=== PATIENT | male | born 1950 | race Caucasian/White ===

== ENCOUNTER 2025-06-19 21:39 | Inpatient (IN) | payer OTHER, SELFPAY ==
[2025-06-19 19:03] VITALS: BP 109/69
[2025-06-19 19:20] VITALS: BP 114/79
[2025-06-19 19:27] VITALS: BMI 25.9
--- NOTE | 2025-06-19 19:49 | ED.GENMED ---
History of Present Illness
General
Chief Complaint: Heart Rate Problem
Source: patient
Exam Limitations: none
Time Seen by Provider: 06/19/25 19:20
Nursing documentation reviewed up to this point in time: agreed with
History of Present Illness
History of Present Illness:
Note:
CHIEF COMPLAINT(S)
Palpitations since late afternoon.
HISTORY OF PRESENT ILLNESS
The patient is a 75-year-old male presenting with new-onset palpitations since late this afternoon. He reports feeling unwell before his smartwatch indicated an elevated heart rate around 6 PM. The patient denies any previous episodes of this
nature. He has not experienced chest pain or shortness of breath but describes a 'weird' sensation in his chest. The patient has not been on any blood thinners, mentioning he takes metformin, and has no significant medical history reported. After
waking from a nap around 4 PM, his condition started to worsen, particularly during dinner around 4:35 to 5 PM. He also recounts participating in a [employer] screening approximately a year ago, with no abnormal findings reported back then.
PAST SURGICAL HISTORY
Tonsillectomy at age 11.
MEDICATIONS
Metformin (dosage not specified).
PHYSICAL EXAM
General: Alert, no acute distress.
Skin: Warm, dry.
Head: Normocephalic, atraumatic.
Neck: Supple, trachea midline.
Eye, Ears, Nose, Mouth, and Throat: Oral mucosa moist.
Cardiovascular: Normal peripheral perfusion, No edema. Irregularly irregular heart rate.
Respiratory: Respirations are non-labored.
Gastrointestinal: Abdomen nondistended.
Back: Normal range of motion, Normal alignment.
Musculoskeletal: Normal range of motion, normal strength.
Neurological: Alert and oriented to person, place, time, and situation, No focal neurological deficit observed.
Psychiatric: Cooperative, appropriate mood & affect.
PLAN
The plan is to consult cardiology due to the patients presentation of atrial fibrillation with rapid ventricular response. Considering this is the first episode and due to the potential risk of a blood clot, the patient will likely need to be
admitted for further testing and monitoring. Initial cardiology consultation will determine further management steps, possibly involving rhythm control and anticoagulation if indicated.
DIFFERENTIAL DIAGNOSIS
The differential diagnosis includes, in no particular order and is not limited to:
1. Atrial fibrillation with rapid ventricular response
2. Paroxysmal supraventricular tachycardia
3. Myocardial infarction
4. Thyrotoxicosis
5. Electrolyte imbalance
6. Anxiety or panic disorder
7. Structural heart disease
CARE-UPDATE
06/19/25 - 19:[address] Prince; confirmed alignment with current management plan involving heparin anticoagulation and admission for further evaluation, including possible transesophageal echocardiogram (LINDA). The patient and her are in agreement
with the proposed approach.
Disposition:
SUMMARY OF ENCOUNTER
The patient is a 75-year-old male who presented to the emergency department with new onset atrial fibrillation with rapid ventricular response. The patient reported feeling symptoms upon waking from a nap around 4:30 PM and has no prior history of
atrial fibrillation. He is not currently on anticoagulation therapy. Given the presentation, the patient was assessed for potential admission due to the risk associated with atrial fibrillation and the need for further monitoring and evaluation.
DISPOSITION
Admit
ASSESSMENT
The patient is experiencing new onset atrial fibrillation with rapid ventricular response, necessitating evaluation and management for possible anticoagulation and rhythm control.
MANAGEMENT OF THE PATIENTS CARE WAS DISCUSSED WITH
Consulted with Dr. Prince to confirm the management plan, including the initiation of heparin anticoagulation and hospital admission for further evaluation.
PLAN
The patient will be admitted for further testing and monitoring in the setting of new onset atrial fibrillation with rapid ventricular response. Cardiology will be consulted to determine the next steps in management, possibly involving rhythm
control and initiation of anticoagulation therapy if indicated.
MEDICATION RECONCILIATION
The patient is currently taking Metformin. He has not been prescribed or administered any other medications as noted in this encounter.
MEDICAL DECISION MAKING
-Chronic conditions affecting care [None specified in history]
Differential diagnosis includes atrial fibrillation with rapid ventricular response, paroxysmal supraventricular tachycardia, myocardial infarction, thyrotoxicosis, electrolyte imbalance, anxiety or panic disorder, structural heart disease,
pulmonary embolism, hypertensive emergency, and infection causing sepsis-related tachycardia.
-Data:
Category 3
Discussion of management with Dr. Prince regarding anticoagulation and admission for evaluation.
DIAGNOSIS
New onset atrial fibrillation with rapid ventricular response (I48.91)
Phy Exam
Physical Exam
Physical Exam:
.
Cardiovascular Exam
Cardiovascular Exam: irregularly irregular
Scores
[id number] Score for Afib Stroke Risk
Age in Years (65=0, 65-74=1, >/=75=2): > or = 75
Sex (Female=+1): Male
Congestive Heart Failure History (Yes=+1): No
Hypertension History (Yes=+1): No
Stroke/TIA/Thromboembolism History (Yes=+2): No
Vascular Disease History (Yes=+1): No
Diabetes Mellitus (Yes=+1): No
Score: 2
Anticoagulation Recommendations: Recommend anticoagulation (as validated in nonvalvular fib)
Course
Orders/Labs/Results
Orders:
Orders
06/19/25 Breakfast
Cholesterol Lowering
At Your Request: Full Participation
Cholesterol Lowering: Sodium, 2 Gram
06/19/25 18:54
Electrocardiogram (*1) Urgent
Reason for Study: Chest Pain
EKG- Treatment ONCE
06/19/25 19:09
Electrocardiogram (*1) Urgent
Reason for Study: Other
Other Reason for Exam: Respiratory Distress
Cardiac Monitoring- Treatment ONCE
EKG- Treatment ONCE
IV Insert/Care/Rem.- Treatment PRN
CR Chest - 2 Views Urgent
Comment:
Reason For Exam: respiratory distress
O2 Therapy [RESP] Urgent
Titrate/Wean O2 to maintain O2 sat greater than (%): 93
Special Instructions: TO MAINTAIN CONTINUOUS O2 SATS >/= 93%
Pulse Ox/cont/shift [RESP] Urgent
Quantity: 1
Special Instructions: continuous pulse ox
06/19/25 19:40
Heparin 4,000 units IV NOW STA
06/19/25 19:[address] Non Medication Order As Directed
Physician Order: PTT 6 hours after initial start of Heparin infusion
Above order entered?: Yes
06/19/25 19:42
Diltiazem HCl [Cardizem] 20 mg IV NOW STA
06/19/25 19:45
Heparin 09519 Units/250 ml 25,000 units in 250 ml IV PER PROTOCOL
Weight to be used for heparin protocol in kilograms (kg):: 81.8
Protocol:: Cardiac Tx/Acute Coronary
PTT Goal Range to be used:: PTT 73 to 111 seconds
Order type:: Initial
INITIAL Infusion Dose (UNITS/KG/hr) & then follow protocol:: 15 units/kg/hr
Infusion Dose in UNITS/hr & then follow protocol (UNITS/hr):: 1,250
INFUSION RATE in mL/hr & then follow protocol (mL/hr):: 12.5
PTT less than or equal to 64 seconds:: Increase rate by 200 units/hr (+ 2 mL/hr)
PTT 64.1 to 72.9 seconds:: Increase rate by 100 units/hr (+ 1 mL/hr)
PTT 73 to 111 seconds:: Target Range. No change in rate.
PTT 111.1 to 130.9 seconds:: Decrease rate by 100 units/hr (- 1 mL/hr)
PTT 131 to 199.9 seconds:: HOLD for 1 hr. Then decrease rate by 200 units/hr (- 2 mL/hr)
PTT greater than or equal to 200 seconds:: HOLD for 2 hrs & Notify Provider. Then decrease by 200 units/hr (-
2 mL/hr)
Lab follow-up:: Each change, PTT q6h until 2 consecutive are therapeutic. Then PTT
daily.
06/19/25 19:50
Complete Blood Count/With Diff Urgent
Comprehensive Metabolic Panel Urgent
NT-proBNP Urgent
PTT Urgent
Comment: Obtain baseline before beginning heparin infusion if not already collected
Troponin I Urgent
06/19/25 20:57
Admit/Transfer Patient As Directed
Co-Sign Provider:
Level of Care: Inpatient admission
Assign to:: IVU
Physician / Group: [email or web address]
Diagnosis: New onset symptomatic fast A Fib
Reason for Hospitalization: New onset symptomatic fast A Fib
Expected length of stay greater than two midnights?: Yes
ELOS- Estimated Length of Stay in days: 3
I certify the patient meets the requirements for IP care: Yes
PRN Pain Medication Management As Directed
May give lesser potent ordered pain med per pt: Yes
preference::
Protocol:: Medication orders for pain may be administered in a
manner that supports deferring to patient preference
when the pt is:
- Requesting an ordered lesser potent pain medication.
Least to most potent pain medications are defined
as: acetaminophen < NSAID < tramadol < opioids
(morphine, oxycodone, hydromorphone).
- Requesting a lesser dose of the same medication IF
ORDERED.
- Requesting a less intrusive route of administration
if both routes are prescribed by the provider (PO <
IV).
06/19/25 21:00
Code Status As Directed
Resuscitation Status: Full Code
06/19/25 21:58
Acetaminophen [Tylenol] 650 mg PO Q4HPRN PRN
Bisacodyl [Dulcolax] 10 mg RECTAL [id number] PRN
Diltiazem 125 mg/125 ml Nss [Cardizem] 125 mg in 125 ml IV PER PROTOCOL
Initial dose in mg/hr, then titrate:: 5
Titrate to keep:: Heart rate 80-100 bpm
Titrate by mg/hr:: 5 mg/hr
Frequency of titrations (minutes):: 15
Maximum dose in mg/hr:: 15
Docusate W/Senna [Senokot-S] 1 tablet PO BIDPRN PRN
Ondansetron Injectable [Zofran] 4 mg IV Q6HPRN PRN
Polyethylene Glycol Powder [Miralax] 17 grams PO DAILYPRN PRN
06/19/25 21:58
Consult Cardiology [CARDIOLOGY CONSULT] Routine
Consulting Provider: Mauricio Monson
Was physician already notified: Yes
Reason for consult: New onset symptomatic fast A Fib
Activity As Directed
Activity Level: With Assistance
Vital Signs As Directed
Frequency: Per unit guidelines
Cbc Echo Follow up Study Routine
Comment:
06/20/25 02:41
Heparin Protocol- PTT Orders As Directed
PTT per Heparin protocol: per protcol, 6 hrs from start of heparin drip
Above order entered?: Yes
06/20/25 06:00
Echo 2D MMode Color/Doppler IN AM
Reason for Study: new onset A Fib
Basic Metabolic Panel IN AM
Complete Blood Count/No Diff IN AM
Abnormal Lab Results
06/19/25
19:50
RBC 4.26 L 10^6/uL
(4.70-6.10)
Absolute Monos (auto) 0.8 H 10^3/uL
(0.1-0.6)
Neutrophils % 38.1 L %
(42.2-75.2)
Monocytes % 11.8 H %
(1.7-9.3)
06/19/25 19:50
06/19/25 19:50
Vital Signs
Initial and Last Documented VS:
Initial Vital Signs
Temp Pulse Resp BP Pulse Ox
99 F 148 20 109/69 98
06/19/25 19:03 06/19/25 19:03 06/19/25 19:03 06/19/25 19:03 06/19/25 19:03
Last Documented Vital Signs
Temp Pulse Resp BP Pulse Ox
98.1 F 72 16 108/71 98
06/19/25 23:10 06/19/25 23:10 06/19/25 23:10 06/19/25 22:06 06/19/25 23:10
*Pulse Oximetry
SaO2: 96
Oxygen Mode of Delivery: Room air
Patient hypoxic: no
*Critical Care Note
Total Time (30-74mins, 75-104mins- exclusive of procedures): Not Applicable
ED Attending Note
-
Portions of this chart may have been created with voice recognition software.� Occasional wrong word or��sound alike� substitutions may have occurred due to the inherent limitations of voice recognition software.
Discharge Plan
Departure
Patient Disposition: Admit
Date of Disposition: 06/19/25
Time of Disposition: 19:50
Admit to: Telemetry
Presentation/result/management discussed w/ accepting MD/DO: Hospitalist
Discharge Problem:
Atrial fibrillation with RVR
Interventions
Interventions:
*Risk Screen - Suicide Last Done: 06/19/25 19:03
*General Assessment Last Done: 06/19/25 19:03
*Neglect/Abuse Screening Last Done: 06/19/25 19:03
*ED- Fall Risk Assessment Last Done: 06/19/25 19:03
*ED COVID-19 Vaccine History Last Done: 06/19/25 19:03
*Nursing Disposition Last Done: 06/19/25 22:11
ED- Cardiac Assessment Last Done: 06/19/25 19:45
ED- Pulmonary Assessment Last Done: 06/19/25 19:45
Discharge Date and Time
Discharge Date/Time: 06/19/25 22:00
[2025-06-19 20:01] LABS: Hematocrit 39.2 % (39.0-52.0); Hemoglobin 13.2 g/dL (13.0-18.0); Mean Corp Hgb Conc. 33.7 g/dL (33.0-37.0); Mean Corpuscular Volume 92.0 fL (80.0-94.0); Nucleated Red Blood Cells % 0 % (-); Platelet Count 227 10^3/uL (130-400); Red Cell Dist. Width 13.2 % (11.5-14.5)
[2025-06-19 20:11] LABS: APTT 27.1 Sec (23.4-35.0)
[2025-06-19] MEDS: CARDIZEM 20 MG IV (20:20)
[2025-06-19] MEDS: HEPARIN 4000 UNITS IV (20:21)
[2025-06-19 20:25] LABS: ALT (SGPT) 21 U/L (0-50); AST (SGOT) 24 U/L (17-59); Albumin 4.0 g/dl (3.5-5.0); Alkaline Phosphatase 51 U/L (38-126); Blood Urea Nitrogen 18 mg/dl (9-20); Calcium 8.9 mg/dl (8.4-10.2); Carbon Dioxide 28 mmol/L (22-30); Chloride 107 mmol/L (98-107); Estimated Creatinine Clearance 54 ml/min; Glucose 96 mg/dl (70-99); Potassium 4.6 mmol/L (3.5-5.1); Sodium 140 mmol/L (135-145); Total Protein 6.5 g/dl (6.3-8.2); eGFR > 60.00
[2025-06-19 20:36] LABS: Troponin I < 0.012 ng/ml
[2025-06-19 21:00] VITALS: BP 106/67
[2025-06-19 22:06] VITALS: BP 108/71
--- NOTE | 2025-06-19 22:41 | PTCARENOTE ---
Pt admitted from ER into 2241 for new onset A fib w AVR. Pt is AAOx3 SR on the monitor repeat EKG done VSS denies CP Heparin gtt infusing @ 1250 unit/HR. A fib booklet given. Pt was oriented to the room and POC for the night. Call haines within reach.
[2025-06-19 23:11] VITALS: BMI 25.4
[2025-06-20 02:33] VITALS: BP 108/60
[2025-06-20 03:23] LABS: Hematocrit 34.4 % (39.0-52.0); Hemoglobin 11.4 g/dL (13.0-18.0); Mean Corp Hgb Conc. 33.1 g/dL (33.0-37.0); Mean Corpuscular Volume 92.7 fL (80.0-94.0); Platelet Count 201 10^3/uL (130-400); Red Cell Dist. Width 13.4 % (11.5-14.5)
[2025-06-20 03:33] LABS: APTT 112.4 Sec (23.4-35.0)
[2025-06-20 03:45] LABS: Blood Urea Nitrogen 21 mg/dl (9-20); Calcium 8.7 mg/dl (8.4-10.2); Carbon Dioxide 26 mmol/L (22-30); Chloride 111 mmol/L (98-107); Estimated Creatinine Clearance 65 ml/min; Glucose 103 mg/dl (70-99); Potassium 4.5 mmol/L (3.5-5.1); Sodium 138 mmol/L (135-145); eGFR > 60.00
[2025-06-20 06:53] VITALS: BP 123/70
[2025-06-20 07:15] VITALS: BMI 25.3
--- NOTE | 2025-06-20 07:37 | CON.CAR ---
Addendum entered and electronically signed by Mauricio Monson MD 06/20/25 09:52:
I saw and examined the patient.
The COKE BURNER or PA's note was reviewed and I agree with the note.
Comment: General: Well developed, well nourished in NAD.
Neck: Supple, no JVD, HJR, carotids +2 B/L, no bruits bilaterally.
Heart: Non displaced PMI, RRR, no murmurs, No S3, S4, no rubs.
Lungs: Clear to auscultation bilaterally, no wheeze, rhonchi, rubs bilaterally,
normal expiratory phase.
Abdomen: Normal bowel sounds, soft, non-tender, non-distended.
Extremities: No clubbing, cyanosis or edema bilaterally.
Neuro: Grossly nonfocal, awake, alert and oriented x3.
Adam has a history of hypercholesterolemia. He presents with new onset of palpitations and A-fib noted on his Apple Watch. He wears his watch regularly and has not had A-fib in the past. He spontaneously converted to sinus rhythm. Denies
chest pain, short breath, or palpitations.
Will add Toprol and Eliquis. Will check echocardiogram. If echo okay stable cardiology status for discharge. Discussed with primary service.
Original Note:
Consultation
Consultation Request
Date/Time Consultation Requested: 06/19/2025, 2158
Date/Time Consultation Performed: 06/20/2025, 0742
Requesting Provider: Dr Mendoza
Performing Provider: ABBY Arteaga for Dr Monson
Reason for Consultation: afib
Medical History
-
Chief Complaint: palpitations
History of Present Illness:
75-year-old male presents with new onset palpitations since late afternoon 06/19/2025, noted afib on his Apple Watch. Complains of weird sensation in his chest but no chest pain or shortness of breath. Presented to ED and was found to be in A-fib
with rapid ventricular response. [id number] score 2 for age. Started on heparin and Cardizem drip. No prior history of afib. Has worn Apple Watch for 5-6 yrs with no detections. On Atorvastatin for hyperlipidemia. No h/o HTN, TN, CAD, HF,
arrhythmias.
ED workup: Troponin less than 0.012, proBNP 350 BUN/creatinine 18/1.2, NA 140, K4.6, hemoglobin 13.2
Chest x-ray: no acute process
EKG: afib 155 bpm
Pt admitted to IVU, spontaneously converted to NSR.
Feels well, no CP, SOB, palps, LH, syncope.
Admits to snoring. Never tested for sleep apnea.
Past Medical History
Past Medical History: Hypercholesterolemia
Past Surgical History: Other
Social History
Tobacco: Non-Smoker
Alcohol: None (wuite)
Allergies / Home Medications
Allergy/AdvReac Type Severity Reaction Status Date / Time
No Known Allergies Allergy Unverified 06/19/25 19:03
�Medication �Instructions �Recorded �Confirmed �Type
atorvastatin 20 mg tablet 20 mg PO DAILY 06/19/25 06/19/25 History
Review of Systems
-
History Source: Patient
Constitutional: No Symptoms
Physical Exam
Vital Signs
Temp Pulse Resp BP Pulse Ox
97.7 F 58 17 108/60 97
06/20/25 07:15 06/20/25 07:15 06/20/25 07:15 06/20/25 02:33 06/20/25 07:15
GEN: No distress, awake, Ox3
HEENT: supple, anicteric, mmm
LUNGS: CTA, no wheezes/rales
CV: Reg, S1/S2, no murmur
ABD: soft, BS+, NT/ND
EXT: No edema
NEURO: Gross non-focal
SKIN: No rash
Lab Results
06/20/25 02:41
06/20/25 02:41
Troponin I < 0.012 ng/ml 06/19/25 19:50
Oqr-O-Vwtsxwerrwf Pept 350 pg/ml 06/19/25 19:50
Impression / Plan
-
PCP: Sarah Solano
Prim rubber mold maker: none
Imp:
New onset atrial fibrillation
hyperlipidemia
Previous CV testing:
Ex stress test 2012: negative for ischemia
Plan
-new onset paroxysmal atrial fibrillation
-spontaneously converted to NSR
-[id number] 2 -age- anticoag indicated
-start Eliquis 5 mg bid-I ordered, can stop Heparin
-start Toprol 25 mg daily-I ordered
-getting echo today
-check TSH-added on
-outpt cardiac f/u with [facility]
-consider outpt sleep study
-cont Atorvastatin for hyperlipidemia
Data Reviewed
-
EKG: Tracing Personally Visualized and interpreted
Labs: Labs Reviewed by me
--- NOTE | 2025-06-20 08:13 | PTCARENOTE ---
Assumed care of patient. Walking rounds completed with previous RN. Pt assessed while he was lying in the bed. Pt alert and oriented x4. Pt denies pain, shortness of breath, and nausea. PAYAN with equal strength, pt independent in the room. SB with
1st degree AVB on tele with rates in the 60s. BP 123/70. Bilateral radial and DP pulses palpable. No edema noted. POX 97% on RA. Lungs clear throughout. No cough noted. Abdomen soft, round, nontender. +BS. Pt voiding in the bathroom, reports no
issues. Left forearm 20g PIV intact infusing heparin gtt @1150units/hour. See MAR for medication administration. See worklist for complete nursing assessment. Plan of care reviewed and patient in agreement.
--- NOTE | 2025-06-20 09:04 | W.PN.HOSP.TC ---
Today's Communication/Plan
-
Follow-up echo, okay to discharge if unremarkable per cards
Stopped heparin, started Eliquis 5 mg twice daily
Started Toprol 25 mg daily
Follow-up with [facility] cardiology outpatient
Outpatient sleep study recommended
Assessment / Plan
Assessment / Plan
Adam is a 75-year-old male with hyperlipidemia, GERD, diverticulosis, T2D on metformin, and history of hepatitis B who presented to the ED for new onset palpitations since afternoon 06/19/2025, noted A-fib on his Apple Watch, now with a formal new
diagnosis of A-fib. In the ED, he was found to be in A-fib with RVR (155 bpm) and started on heparin and Cardizem drip. He was admitted to the IVU and spontaneously converted to normal sinus rhythm. Cardiology was consulted for further workup and
management. Of note, he he has no history of hypertension, MA, CAD, HF, arrhythmias, and this is a new alert for him (has had Apple watch for 5 to 6 years).
#New onset atrial fibrillation
- Cards consulted, appreciate recs
--Start Eliquis 5 mg twice daily: Stop heparin
--Start Toprol 25 mg daily
--Follow-up echo
-- TSH 3.16, WNL
--Outpatient cardiology follow-up with [facility]
--Consider outpatient sleep study
- IV Zofran 4 mg every 6 hours as needed
- Tylenol 650 mg every 4 hours as needed
#Hyperlipidemia
- Continue atorvastatin 20 mg p.o. daily
#Type 2 diabetes mellitus
- Hold home metformin in the hospital
Diet: Cholesterol-lowering, standard bowel regimen
DVT prophylaxis: Eliquis scratch that
CODE STATUS: Full code
Anticipated Discharge: Today (Pending echo results)
Subjective/Interval History
-
Date of Service: June 20, 2025
-This morning, he is sitting comfortably in bed with at bedside and best friend in the room. He denies chest pain, palpitations, N/V, or any other symptoms. Overall, he is in agreement with the plan per cardiology. I discussed with him
that if his echo today comes back unremarkable, he would be good to go home with outpatient cardiology follow-up.
Objective Data
-
Labs:
Laboratory Results
06/20/25 06/20/25
02:41 09:45
WBC 6.0
Hgb 11.4 L
Hct 34.4 L
Plt Count 201
APTT 112.4 H Pending
Sodium 138
Potassium 4.5
Chloride 111 H
Carbon Dioxide 26
BUN 21 H
Creatinine 1.0
Glucose 103 H
Calcium 8.7
Vital Signs:
Vital Signs
Temp Pulse Resp BP Pulse Ox
97.7 F 55 17 123/70 97
06/20/25 07:15 06/20/25 08:00 06/20/25 07:15 06/20/25 06:53 06/20/25 08:26
I&O
06/19/25 06/20/25 06/21/25
06:59 06:59 06:59
Output Total 350 / 350 300 / 300
Balance -350 / -350 -300 / -300
Review of Systems
-
History Source: Patient
All other systems: Reviewed and negative
Physical Exam
-
General: Well Developed, Well Nourished and No Apparent Distress
HEENT: Normocephalic, Atraumatic and Moist Mucous Membranes
Respiratory: Clear to Auscultation and Non Labored Respirations
Cardiac: S1/S2 and Irregular Rhythm (New A-fib, rate controlled)
GI: Soft, Nontender and Nondistended
Musculoskeletal: No Clubbing, No Cyanosis and No Edema
Skin: Warm and Dry
Psych: Calm and Intact Judgement/Insight
[2025-06-20 09:29] VITALS: BP 124/67
[2025-06-20] MEDS: TOPROL XL 25 MG PO (09:29)
[2025-06-20] MEDS: ELIQUIS 5 MG PO (09:29)
--- NOTE | 2025-06-20 09:54 | W.PN.UPDATE ---
Addendum entered and electronically signed by Poncho Valle MD 06/20/25 13:48:
Total time spent on d/c = 31 min. This included today's physical exam, progress note, review of laboratory and diagnostic data, preparation of discharge documents and prescriptions, and discussions about the pt's hospital course and discharge plan
with the patient and other medical laboratory technical officer involved in the patient's care.
Original Note:
Update Note
Progress Note Update
I saw and evaluated the patient. I reviewed the resident�s note and agree with findings and plan as documented in the resident�s note.
Denies CP/SOB.
Gen: NAD, AAOx3.
Eyes: EOMI, PERRLA, no scleral icterus.
Neck: supple.
CV: RRR, +S1/S2, no m/r/g.
Resp: CTAB, no rales, wheezes, or rhonchi.
Abd: +BS, soft, NT, ND
Skin: No rashes.
Neuro: CN 2-12 intact, non-focal.
Psych: Normal mood and affect.
Afib with RVR:
-was given 20mg IV cardizem, now converted to SR and off cardizem gtt
-check echo
-cont Eliquis/BB
-was on Heparin gtt, now converted to Eliquis
-cards following, likely can be discharged after echo
HLD:
-cont statin
FULL/Eliquis
[2025-06-20 10:21] LABS: TSH 3.16 uIU/ml (0.47-4.68)
[2025-06-20 11:41] VITALS: BP 133/74
--- NOTE | 2025-06-20 14:22 | PTCARENOTE ---
Discharge order recieved. Pt stable prior to discharge. All instructions reviewed and all questions answered. Pt refused eliquis pricing and stated that 'I'll pay whatever'. PIV d/c. Tele d/c. Taken via wheelchair to his car.
--- NOTE | 2025-06-20 15:58 | CM ---
spoke to pt in room, he is prev indep, lives with his husb in a 2 story home wiot 3 steps to [place]. he denies any dc planning needs. plan is for dc to [facility] medically stable.
--- NOTE | 2025-06-20 17:09 | W.DCSUMMARY ---
Discharge Summary
Discharge Data
Date of Admission: 06/19/25
Date of Discharge: 06/20/25
-
Pending Results: No
Hospital Course
Discharging Physician : Pearl Montelongo MD/[email or web address]
Disposition : Home
Principal Discharge diagnosis : Atrial fibrillation s/p RVR
Hospital Course : Adam is a 75-year-old male with hyperlipidemia, GERD, diverticulosis, T2D on metformin, and history of hepatitis B who presented to the ED for new onset palpitations since afternoon 06/19/2025, noted A-fib on his Apple Watch,
now with a formal new diagnosis of A-fib. In the ED, he was found to be in A-fib with RVR (155 bpm) and started on heparin drip and given a one-time dose of Cardizem. Of note, he he has no history of hypertension, UT, CAD, HF, arrhythmias, and this
is a new alert for him (has had Apple watch for 5 to 6 years). He was admitted to the IVU and spontaneously converted to normal sinus rhythm. Cardiology was consulted for further workup and management. He was started on 2 new medications: Eliquis
5 mg twice daily and Toprol 25 mg daily. Echo showed 71% ejection fraction, and mild aortic, mitral, tricuspid regurgitation. He was deemed medically stable for discharge with recommendation for an outpatient sleep study and outpatient follow-up
scheduled with cardiology in July and PCP in less than a week. See below for full hospital course by problem:
#New onset atrial fibrillation
- Cards consulted, appreciate recs
-- Eliquis 5 mg twice daily: Stop heparin
-- Toprol 25 mg daily
--Follow-up echo as below
-- TSH 3.16, WNL
--Outpatient cardiology follow-up with [facility]
--Consider outpatient sleep study
- IV Zofran 4 mg every 6 hours as needed
- Tylenol 650 mg every 4 hours as needed
#Hyperlipidemia
- Continue atorvastatin 20 mg p.o. daily
#Type 2 diabetes mellitus
- Hold home metformin in the hospital
Important imaging findings :
Echo 06/20/2025:
1. Left ventricular ejection fraction is normal with an ejection fraction of 71 % by Clay's biplane method of discs.
2. Normal left ventricular size, wall thickness and systolic function. No regional wall motion abnormalities are seen.
3. Mild to moderate aortic regurgitation.
4. Mild mitral valve regurgitation.
5. Mild tricuspid regurgitation.
6. Tricuspid valve opens normally. mild tricuspid regurgitation. Estimated pulmonary artery pressure of 31 mmHg assuming a right atrial pressure of 3 mmHg.
7. No prior echo for comparison.
Discharge Plan
-
Patient Disposition: Home (Routine Discharge)
Discharge Diagnosis/Procedures: New atrial fibrillation s/p RVR, now NSR
Condition: Good
Diet: Low Cholesterol
Activity: No restrictions
Driving Restrictions: As prior to admission
Bathing Restrictions: None
Others Tests: Consider outpatient sleep study
Referrals:
Sudha Keyes PA-C [Specified Professional Personl, Cardiology] - 07/18/25 8:20 am
Referral Note: You have an appointment with Dr. Monson's physician physiotherapy assistant Sudha at the [facility]. Please call if questions.
Sarah Solano MD [Family Provider, Family Practice] - in less than 1 week
Referral Note: Follow-up about this hospitalization with your PCP in a week. Consider outpatient sleep study to evaluate for obstructive sleep apnea.
Additional Discharge Medication Instructions: Given your new diagnosis of atrial fibrillation, please take Eliquis 5 mg tablet twice daily and metoprolol succinate 25 mg once daily.
Follow-up outpatient with your PCP for this hospitalization in a week and pipe layer helper appointment with HANNAH Keyes at 8:20 AM on 07/18/2025 regarding atrial fibrillation management.
Prescriptions:
New
Eliquis 5 mg Tablet
5 mg PO BID 60 Days Qty: 120 0RF
metoprolol succinate 25 mg Tablet Extended Release 24 Hr
25 mg PO DAILY 30 Days Qty: 30 0RF
Continued
atorvastatin 20 mg Tablet
20 mg PO DAILY
Discharge Orders:
Discharge Patient (As Directed); Ordered 06/20/25
Ordered By: Poncho Valle
Care Plan Goals
Care Plan Goals:
Problem: Readiness for enhanced knowledge related to diagnosis and treatment plan
Goal: Understand your diagnosis and treatment plan needs, including medications if applicable.
Instructions: Know your diagnosis, underlying causes and treatment plan options, including medications if applicable. Consult with your health care team to learn about your diagnosis and treatment plan, including medications if applicable.
Discharge Date and Time
Discharge Date/Time: 06/20/25 14:24
Print Language: [id number]
== END 2025-06-20 14:24 | disposition home or self-care (01) | DRG 310 ==
LOC: IVU 21:39
PROVIDERS: ADMITTING PHYSICIAN Internal Medicine; ATTENDING PHYSICIAN Internal Medicine; CONSULT PHYSICIAN Internal Medicine Cardiovascular Disease; EMERGENCY PHYSICIAN Student in an Organized Health Care Education/Training Program; FAMILY PHYSICIAN Family Medicine
DX: I48.0 Paroxysmal atrial fibrillation (principal); E78.00 Pure hypercholesterolemia, unspecified; E11.9 Type 2 diabetes mellitus without complications; K21.9 Gastro-esophageal reflux disease without esophagitis; K57.30 Diverticulosis of large intestine without perforation or abscess without bleeding; Z79.01 Long term (current) use of anticoagulants; Z79.899 Other long term (current) drug therapy; Z79.84 Long term (current) use of oral hypoglycemic drugs; Z86.19 Personal history of other infectious and parasitic diseases
CPT/HCPCS: 71046; 80048; 80053; 83880; 84443; 84484; 85025; 85027; 85730; 93005; 93306; 99285

== ENCOUNTER → 2025-08-02 14:13 | Outpatient (REF) | payer OTHER, SELFPAY | LOC: DHSLP 14:13 | PROVIDERS: ATTENDING PHYSICIAN Family Medicine | DX: G47.33 Obstructive sleep apnea (adult) (pediatric) (principal) | CPT/HCPCS: 95800 ==